=== PATIENT | male | born 1975 | race Hispanic/Latino ===

== ENCOUNTER → 2023-05-21 | Outpatient (CLI) | payer BC ==
[~2023-05-21] MED LIST: GADOTERATE MEGLUMINE 10 MMOL/20 ML VIAL IV ONE
== END | disposition home or self-care (01) ==
LOC: RAH 09:54
PROVIDERS: ATTEND Neurological Surgery
DX: M47.12 Other spondylosis with myelopathy, cervical region (principal)
CPT/HCPCS: 72141; A9575